=== PATIENT | female | born 1990 | race Two or more races ===

== ENCOUNTER 2025-03-19 12:09 | Emergency (ER) | payer OTHER ==
[~2025-03-19] VITALS: Ht 165.1 cm; Wt 67.1 kg
[2025-03-19] MEDS ORDERED: PRENATAL + DHA1 EAC1 PO (12:26)
[2025-03-19] MEDS ORDERED: SYNTHROID125 MCG PO (12:26)
[2025-03-19] MEDS ORDERED: MEPERIDINE HCL/PF 50 MG/ML VIAL IM ONE (12:45)
[2025-03-19] MEDS ORDERED: TAMSULOSIN HCL 0.4 MG CAP PO ONE (12:45)
[2025-03-19] MEDS ORDERED: FAMOtidine 10 MG/ML (4ML VIAL) IV ONE (12:45)
[2025-03-19] MEDS ORDERED: ONDANSETRON HCL 2 MG/ML VIAL IV ONE (13:30)
[2025-03-19 13:41] LABS: HEMATOCRIT 37.4 % (36.0-45.00); HEMOGLOBIN 12.7 g/dL (12.0-15.00); MEAN CELL VOLUME 94.7 fL (80.00-100.00); MEAN CORPUSCULAR HEMOGLOBIN 32.1 pg (27.00-32.0); MEAN CORPUSCULAR HGB CONC 33.9 g/dl (32.0-36.0); PLATELET COUNT 260 K/uL (150-450); RED BLOOD COUNT 3.95 M/uL (4.00-6.00); RED CELL DISTRIBUTION WIDTH 13.7 % (11.5-14.5)
[2025-03-19 14:39] LABS: ALBUMIN 3.4 gm/dL (3.4-5.0); BILIRUBIN TOTAL 0.22 mg/dL (0.3-1.2); CALCIUM 9.4 mg/dL (8.5-10.1); CREATININE SERUM 0.65 mg/dL (0.55-1.02); GFR 105.63; GLOBULINA 3.5 G/DL (2.4-3.5); POTASSIUM 3.92 mEq/L (3.5-5.1); TOTAL PROTEIN 6.9 gm/dL (6.4-8.2)
[2025-03-19 15:40] LABS: URINE APPEARANCE Turbid; URINE BILIRRUBIN Negative (NEGATIVE); URINE BLOOD Negative; URINE COLOR Yellow; URINE GLUCOSE Negative (NEGATIVE); URINE LEUKOCYTE Trace; URINE NITRATE Negative; URINE PROTEIN 30 (NEGATIVE)
[2025-03-19 15:44] LABS: URINE CAST 2.06 uL (0.0-1.40); URINE RBC 110.7 uL (0.0-20.8); URINE WBC 63.4 uL (0.0-23.2)
[2025-03-19 16:05] LABS: URINE BACTERIA > 9821.5 uL (0.0-1933); URINE EPITHELIAL CELLS > 201.7 uL (0.0-38.8); URINE KETONE >=160 (NEGATIVE); URINE MUCUS HEAVY; URINE YEAST NEGATIVE /hpf
[2025-03-19] MEDS ORDERED: PEPCID AC20 MG PO (16:15)
[2025-03-19] MEDS ORDERED: TAMS0.4C PO (16:15)
[2025-03-19] MEDS ORDERED: CEPHALEXIN250 M1 PO (16:15)
== END 2025-03-19 19:26 | disposition home or self-care (01) ==
LOC: ER 12:10
PROVIDERS: General Practice
DX: O26.892 Other specified pregnancy related conditions, second trimester (principal); R10.31 Right lower quadrant pain; Z3A.15 15 weeks gestation of pregnancy; E03.9 Hypothyroidism, unspecified

== ENCOUNTER 2025-06-11 02:23 | Emergency (ER) | payer OTHER ==
[~2025-06-11] VITALS: Ht 165.1 cm; Wt 70.3 kg
[~2025-06-11 02:23] MED LIST: CEPHALEXIN250 M1 PO; PEPCID AC20 MG PO; PRENATAL + DHA1 EAC1 PO; SYNTHROID125 MCG PO; TAMS0.4C PO
[2025-06-11] MEDS ORDERED: IRON236 MG (07:42)
== END 2025-06-11 04:54 | disposition still patient (30) ==
LOC: ER 02:23
DX: O26.893 Other specified pregnancy related conditions, third trimester (principal)

== ENCOUNTER 2025-06-11 05:23 | Outpatient (CLI) | payer OTHER ==
[~2025-06-11] VITALS: Ht 165.1 cm; Wt 70.3 kg
[2025-06-11 03:48] VITALS: BP 108/57
[2025-06-11] MEDS ORDERED: RINGERS SOLUTION,LACTATED 1,000 ML IV SCH (05:30)
[2025-06-11 07:39] VITALS: BP 113/63
[2025-06-11 07:42] LABS: URINE APPEARANCE Clear; URINE BILIRRUBIN Negative (NEGATIVE); URINE BLOOD Negative; URINE COLOR Yellow; URINE GLUCOSE Negative (NEGATIVE); URINE KETONE Negative (NEGATIVE); URINE LEUKOCYTE Negative; URINE NITRATE Negative; URINE PROTEIN Trace (NEGATIVE); URINE UROBILINOGEN 0.2 E.U./dl
[2025-06-11] MEDS ORDERED: IRON236 MG (07:42)
[2025-06-11 07:45] LABS: URINE BACTERIA 542.4 uL (0.0-1933); URINE EPITHELIAL CELLS 13.5 uL (0.0-38.8); URINE RBC 7.1 uL (0.0-20.8); URINE WBC 9.9 uL (0.0-23.2)
[2025-06-11] MEDS ORDERED: LEVOTHYROXINE SODIUM 150 MCG TABLET PO NR (08:15)
[2025-06-11 08:24] LABS: URINE CAST 0.43 uL (0.0-1.40)
[2025-06-11 08:28] LABS: BASO % 0.4 % (0.1-1.2); EOS # 0.05 (0.04-0.54); EOS % 0.6 % (0.7-7.0); LYMPH # 1.37 (1.18-3.74); LYMPH % 16.7 % (19.3-53.1); MEAN PLATELET VOLUME 10.70 fl (9.4-12.4); MONO # 0.73 (0.24-0.82); MONO % 8.9 % (4.7-12.5); NEUT # 5.99 (1.56-6.13); NEUT % 72.8 % (34.0-71.1); RED CELL DISTRIBUTION WIDTH 13.5 % (11.6-14.4)
[2025-06-11 12:00] VITALS: BP 119/74
[2025-06-11 13:33] VITALS: BP 119/74
[2025-06-12] MEDS ORDERED: LEVOTHYROXINE SODIUM 150 MCG TABLET PO SCH (06:00)
== END 2025-06-11 13:58 | disposition home or self-care (01) ==
LOC: OBS/DEL 05:23
PROVIDERS: Obstetrics & Gynecology; ATTEND Specialist
DX: O26.892 Other specified pregnancy related conditions, second trimester (principal); R10.32 Left lower quadrant pain; Z3A.26 26 weeks gestation of pregnancy

== ENCOUNTER 2025-09-06 04:55 | Inpatient (IN) | payer OTHER ==
[~2025-09-06] VITALS: Ht 152.4 cm; Wt 3.2 kg
[~2025-09-06 04:55] MED LIST changes: +IRON236 MG
[2025-09-06 05:08] VITALS: BP 111/76; BP 115/76
[2025-09-06] MEDS ORDERED: SYNTHROID150 MCG PO (05:40)
[2025-09-06] MEDS ORDERED: RINGERS SOLUTION,LACTATED 1,000 ML IV SCH (05:45)
[2025-09-06 06:38] LABS: URINE APPEARANCE Cloudy; URINE BILIRRUBIN Negative (NEGATIVE); URINE BLOOD Negative; URINE COLOR Yellow; URINE GLUCOSE Negative (NEGATIVE); URINE KETONE Trace (NEGATIVE); URINE LEUKOCYTE Trace; URINE NITRATE Negative; URINE PROTEIN 30 (NEGATIVE); URINE UROBILINOGEN 0.2 E.U./dl
[2025-09-06 06:42] LABS: URINE BACTERIA 3741.4 uL (0.0-1933); URINE EPITHELIAL CELLS 68.3 uL (0.0-38.8); URINE RBC 17.5 uL (0.0-20.8); URINE WBC 73.5 uL (0.0-23.2)
[2025-09-06 06:44] LABS: BASO % 0.3 % (0.1-1.2); EOS # 0.07 (0.04-0.54); EOS % 1.2 % (0.7-7.0); LYMPH # 1.37 (1.18-3.74); LYMPH % 23.4 % (19.3-53.1); MEAN PLATELET VOLUME 11.60 fl (9.4-12.4); MONO # 0.59 (0.24-0.82); MONO % 10.1 % (4.7-12.5); NEUT # 3.73 (1.56-6.13); NEUT % 63.8 % (34.0-71.1); RED CELL DISTRIBUTION WIDTH 13.2 % (11.6-14.4)
[2025-09-06 07:09] LABS: INR 0.94; URINE CAST 0.73 uL (0.0-1.40)
[2025-09-06 07:10] LABS: URINE CRYSTALS MANY /HPF; URINE MUCUS MODERATE
[2025-09-06 07:12] LABS: ALT/SGPT 14.0 U/L (12-78); AST/SGOT 13.0 U/L (15-37); BILIRUBIN TOTAL 0.28 mg/dL (0.3-1.2); BUN CREA RATIO 19.0 (7.0-25.0); CREATININE SERUM 0.54 mg/dL (0.55-1.02); GFR 130.83; GLOBULINA 3.3 G/DL (2.4-3.5); GLUCOSE FASTING 96.0 mg/dL (65-100); OSMOLALITY SERUM 280.0 MOSM/KG (275-295)
[2025-09-06 07:39] VITALS: BP 111/65
[2025-09-06 07:42] VITALS: BP 127/80
[2025-09-06] MEDS ORDERED: OXYTOCIN 500 ML IV SCH (09:30)
[2025-09-06 11:03] VITALS: BP 113/88
[2025-09-06] MEDS ORDERED: MORPHINE SULFATE 4 MG/ML CARTRIDGE IV ONE (11:15)
[2025-09-06 15:17] VITALS: BP 136/77
[2025-09-06] MEDS ORDERED: CHLORHEXIDINE GLUCONATE 120 ML BOTTLE TOP ONE (15:56)
[2025-09-06] MEDS ORDERED: ERYTHROMYCIN BASE OPHT 1GM EACH TUBE OP ONE ×2 (15:56→19:06)
[2025-09-06] MEDS ORDERED: LIDOCAINE HCL 1% 10ML VIAL ONE (15:56)
[2025-09-06] MEDS ORDERED: OXYTOCIN 20 UNITS/1000ML RL PIGGYBAG IV ONE (15:56)
[2025-09-06] MEDS ORDERED: OXYTOCIN 10 UNITS/ML VIAL ONE (19:06)
[2025-09-06 20:12] VITALS: BP 101/56
[2025-09-06] MEDS ORDERED: CEFAZOLIN SODIUM 1,000 MG VIAL ONE (21:40)
[2025-09-06] MEDS ORDERED: MORPHINE SULFATE 4 MG/ML CARTRIDGE IV SCH (23:45)
[2025-09-06] MEDS ORDERED: KETOROLAC TROMETHAMINE 60 MG VIAL IM ONE (23:45)
[2025-09-07 02:45] VITALS: BP 114/61
[2025-09-07 06:58] LABS: BASO % 0.4 % (0.1-1.2); EOS # 0.00 (0.04-0.54); EOS % 0.0 % (0.7-7.0); LYMPH # 0.88 (1.18-3.74); LYMPH % 5.2 % (19.3-53.1); MEAN PLATELET VOLUME 11.30 fl (9.4-12.4); MONO # 0.61 (0.24-0.82); MONO % 3.6 % (4.7-12.5); NEUT # 15.32 (1.56-6.13); NEUT % 90.4 % (34.0-71.1); RED CELL DISTRIBUTION WIDTH 13.2 % (11.6-14.4)
[2025-09-07 07:33] LABS: BAND MAN 7.0 %; LYMPHOCYTE MAN 6.0 %; NEUTROPHILS MAN 86.0 %
[2025-09-07] MEDS ORDERED: OxyCODONE HCL 5 MG TABLET (ROXICODONE) PO SCH (08:00)
[2025-09-07] MEDS ORDERED: ACETAMINOPHEN 325 MG TABLET PO SCH (08:00)
[2025-09-07] MEDS ORDERED: DOCUSATE SODIUM 100MG CAP PO SCH (09:00)
[2025-09-07] MEDS ORDERED: SIMETHICONE 125 MG CAPSULE PO SCH (09:00)
[2025-09-07 16:00] VITALS: BP 101/64
[2025-09-08 02:39] VITALS: BP 121/73
[2025-09-08 08:17] VITALS: BP 121/75
[2025-09-08] MEDS ORDERED: IRON FUM,PS/FOLIC/BCOMP,C NO.9 1 CAP CAPSULE PO SCH (09:00)
[2025-09-08 16:00] VITALS: BP 110/71
[2025-09-09 02:52] VITALS: BP 115/77
[2025-09-09 08:00] VITALS: BP 106/65
[2025-09-09 10:45] LABS: BASO % 0.2 % (0.1-1.2); EOS # 0.15 (0.04-0.54); EOS % 1.2 % (0.7-7.0); LYMPH # 1.00 (1.18-3.74); LYMPH % 7.9 % (19.3-53.1); MEAN PLATELET VOLUME 10.60 fl (9.4-12.4); MONO # 0.44 (0.24-0.82); MONO % 3.5 % (4.7-12.5); NEUT # 10.95 (1.56-6.13); NEUT % 85.9 % (34.0-71.1); RED CELL DISTRIBUTION WIDTH 13.3 % (11.6-14.4)
[2025-09-09 17:44] VITALS: BP 111/68
[2025-09-10 01:35] VITALS: BP 115/71
[2025-09-10 04:26] VITALS: BP 114/67
[2025-09-10 08:00] VITALS: BP 104/64
[2025-09-10] MEDS ORDERED: COLACE100 MG PO (08:51)
[2025-09-10] MEDS ORDERED: IBU800 MG PO (08:51)
== END 2025-09-10 18:17 | disposition home or self-care (01) | DRG 788 ==
LOC: LDR 04:55 → OB/GYN 04:55 → O/R 20:56 → OB/GYN 22:57
PROVIDERS: ADMIT Specialist; ATTEND Specialist
PROC: 4A1HXCZ Monitoring of Products of Conception, Cardiac Rate, External Approach (ICD-10-PCS; 2025-09-06)
PROC: 10D00Z1 Extraction of Products of Conception, Low, Open Approach (ICD-10-PCS; principal; 2025-09-06 23:30)
DX: O82 Encounter for cesarean delivery without indication (principal); O62.1 Secondary uterine inertia; Z3A.39 39 weeks gestation of pregnancy; Z37.0 Single live birth